=== PATIENT | female | born 2000 | race Two or more races ===

== ENCOUNTER 2018-05-29 17:48 | Emergency (ER) | payer MEDICAID, OTHER ==
[~2018-05-29] VITALS: Ht 167.6 cm; Wt 65.8 kg
[2018-05-29] MEDS ORDERED: HYDROcodone-ACET 10/325MG TAB PO ONE (19:00)
[2018-05-29] MEDS ORDERED: KETOROLAC TROMETH 60MG/2ML VIAL IM ONE (19:00)
[2018-05-29 21:27] VITALS: BP 116/62
== END 2018-05-29 22:53 | disposition home or self-care (01) ==
LOC: ER 17:48
DX: G89.4 Chronic pain syndrome (principal); S82.202D Unspecified fracture of shaft of left tibia, subsequent encounter for closed fracture with routine healing; S82.402D Unspecified fracture of shaft of left fibula, subsequent encounter for closed fracture with routine healing; X58.XXXD Exposure to other specified factors, subsequent encounter
CPT/HCPCS: 93971; 96372; 99284; J1885